=== PATIENT | male | born 1970 | race Two or more races ===

== ENCOUNTER → 2019-06-22 14:20 | Outpatient (CLI) | payer OTHER | END | disposition home or self-care (01) | LOC: LAB 14:20 | DX: Z11.3 Encounter for screening for infections with a predominantly sexual mode of transmission (principal) ==

== ENCOUNTER 2022-10-23 09:28 | Emergency (ER) | payer OTHER ==
[~2022-10-23] VITALS: Ht 180.3 cm; Wt 81.6 kg
[2022-10-23] MEDS ORDERED: MEDROLPACK PO (11:53)
[2022-10-23] MEDS ORDERED: ZITHROMAX500 MG PO (11:53)
== END 2022-10-23 12:23 | disposition home or self-care (01) ==
LOC: ER 09:28
DX: J04.0 Acute laryngitis (principal); J32.9 Chronic sinusitis, unspecified; Z91.013 Allergy to seafood; Z20.822 Contact with and (suspected) exposure to COVID-19

== ENCOUNTER → 2024-08-08 | Emergency (ER) | payer OTHER ==
[~2024-08-08] VITALS: Ht 180.3 cm; Wt 79.4 kg
[~2024-08-08] MED LIST: KETOROLAC TROMETHAMINE 30 MG VIAL IM STA; KETOROLAC TROMETHAMINE 30 MG VIAL ONE; MEDROLPACK PO; ZITHROMAX500 MG PO
[2024-08-08 12:53] VITALS: BP 139/90; O2SAT 97
== END | disposition home or self-care (01) ==
LOC: ER 12:16
DX: M25.552 Pain in left hip (principal); W18.39XA Other fall on same level, initial encounter; Y93.89 Activity, other specified; Y92.89 Other specified places as the place of occurrence of the external cause; Z91.013 Allergy to seafood